=== PATIENT | male | born 1955 | race Two or more races ===

== ENCOUNTER 2025-08-21 10:22 | Inpatient (IN) | payer MEDICAID, OTHER ==
[~2025-08-21] VITALS: Ht 167.6 cm; Wt 75.5 kg
[2025-08-21 10:48] LABS: PLATELET COUNT (AUTO) 75 K/uL (150-450); RED BLOOD CELL COUNT(AUTO) 3.14 MIL/uL (4.5-6.0); RED CELL DISTRIBUTION WIDTH 20.9 % (11.5-15.0); WHITE BLOOD COUNT (AUTO) 2.8 K/uL (4.3-11.0)
[2025-08-21 10:53] LABS: ASPARTATE AMINOTRANSFERASE 26.0 U/L (15-37); CALCIUM, SERUM 7.8 mg/dL (8.5-10.1); CREATININE 1.4 mg/dL (0.6-1.3); SODIUM SERUM 140.0 mmol/L (136-145); TOTAL PROTEIN, SERUM 7.6 g/dL (6.4-8.2); UREA NITROGEN, BLOOD 46.0 mg/dL (7-18)
[2025-08-21] MEDS ORDERED: POTASSIUM CHLORIDE 20 MEQ TAB.PRT.SR PO ONE (11:15)
[2025-08-21] MEDS ORDERED: POTASSIUM CL. PREMIX PERIPHER. 50 ML ONE ×4 (11:15→14:36)
[2025-08-21] MEDS ORDERED: DOLU1TAB2 PO (11:17)
[2025-08-21] MEDS ORDERED: ATOR40TA PO (11:17)
[2025-08-21] MEDS ORDERED: ACET-2030 PO (11:17)
[2025-08-21] MEDS ORDERED: ACET-868 PO (11:17)
[2025-08-21] MEDS ORDERED: APIX5TAB PO (11:17)
[2025-08-21] MEDS ORDERED: POLY17PO4 PO (11:17)
[2025-08-21] MEDS ORDERED: FURO-144 PO (11:17)
[2025-08-21] MEDS ORDERED: METO100T14 PO (11:17)
[2025-08-21] MEDS ORDERED: ASCO-352 PO (11:17)
[2025-08-21] MEDS ORDERED: CRAN250C PO (11:17)
[2025-08-21] MEDS ORDERED: NA P133E RC (11:17)
[2025-08-21] MEDS ORDERED: SENN-18 PO (11:17)
[2025-08-21] MEDS ORDERED: LEVE500T20 PO (11:17)
[2025-08-21] MEDS ORDERED: SPIR25TA6 PO (11:17)
[2025-08-21] MEDS ORDERED: MULT-213 PO (11:17)
[2025-08-21] MEDS ORDERED: PANT20TA2 PO (11:17)
[2025-08-21] MEDS ORDERED: MAGN400O6 PO (11:17)
[2025-08-21] MEDS ORDERED: GABA800T11 PO (11:17)
[2025-08-21] MEDS ORDERED: BISA10SU11 RC (11:17)
[2025-08-21] MEDS ORDERED: BACL10TA PO (11:17)
[2025-08-21 11:29] LABS: LYMPHOCYTES % (MANUAL) 11 % (16-48); NEUTROPHILS % (MANUAL) 89 (42-76)
[2025-08-21 11:30] LABS: PLATELET ESTIMATE DECREASED
[2025-08-21] MEDS: POTASSIUM CL. PREMIX PERIPHER. 50 ML IV SCH (11:32)
[2025-08-21] MEDS: POTASSIUM CHLORIDE 20 MEQ TAB.PRT.SR PO ONE (11:32)
[2025-08-21 11:38] LABS: APPEARANCE,URINE TURBID (CLEAR)
[2025-08-21 11:44] LABS: SQUAMOUS EPITHELIAL CELL,UR None Seen /HPF (None Seen)
[2025-08-21] MEDS: CEFTRIAXONE 1GM BAG (ER ONLY) 1 GM/50 ML PIGGYBACK IV ONE (12:05)
[2025-08-21 15:00] VITALS: BP 111/57; TEMP 97.5; O2SAT 100
[2025-08-21] MEDS ORDERED: ONDANSETRON HCL/PF 4 MG/2 ML VIAL IVP PRN (15:00)
[2025-08-21] MEDS ORDERED: Z GUARD REMEDY 4 OZ OINT TP PRN (15:00)
[2025-08-21] MEDS ORDERED: ACETAMINOPHEN 325 MG TABLET PO PRN ×2 (15:00)
[2025-08-21] MEDS ORDERED: MAGNESIUM HYDROXIDE 30 ML UDC PO PRN (15:00)
[2025-08-21] MEDS ORDERED: MAG HYDROX/AL HYDROX/SIMETH 30 ML UDC PO PRN (15:00)
[2025-08-21 17:00] VITALS: BP 111/57; TEMP 97.5; O2SAT 100
[2025-08-21] MEDS: IV D5/0.45 NACL 1,000 ML IV PRN (17:10)
[2025-08-21] MEDS: METOPROLOL TARTRATE 50 MG TABLET PO SCH (17:22)
[2025-08-21] MEDS: APIXABAN 5 MG TABLET PO SCH (17:23)
[2025-08-21] MEDS: DEXTROSE 50%-WATER 50 ML DISP.SYRIN IV PRN (17:42)
[2025-08-21] MEDS: BLOOD SUGAR DIAGNOSTIC 1 EACH STRIP IN SCH (17:43)
[2025-08-21 21:00] VITALS: BP 96/52; TEMP 97.4; O2SAT 99
[2025-08-21] MEDS: GABAPENTIN 400 MG CAPSULE PO SCH (21:23)
[2025-08-21] MEDS: LEVETIRACETAM (250 MG) 250 MG TABLET PO SCH (21:23)
[2025-08-21] MEDS: SENNOSIDES 8.6 MG TABLET PO SCH (22:19)
[2025-08-22 01:00] VITALS: BP 99/55; TEMP 97.7; O2SAT 98
[2025-08-22 04:00] VITALS: BP 156/89; TEMP 97.8; O2SAT 100
[2025-08-22 06:29] LABS: PLATELET COUNT (AUTO) 80 K/uL (150-450); RED BLOOD CELL COUNT(AUTO) 3.47 MIL/uL (4.5-6.0); RED CELL DISTRIBUTION WIDTH 22.4 % (11.5-15.0); WHITE BLOOD COUNT (AUTO) 2.7 K/uL (4.3-11.0)
[2025-08-22] MEDS: INSULIN REGULAR, HUMAN 100 UNIT/ML 3 ML VIAL SQ PRN (06:57)
[2025-08-22 07:05] LABS: CALCIUM, SERUM 8.5 mg/dL (8.5-10.1); PHOSPHORUS 4.3 mg/dL (2.5-4.9); SODIUM SERUM 144.0 mmol/L (136-145); UREA NITROGEN, BLOOD 40.0 mg/dL (7-18)
[2025-08-22 07:18] LABS: CREATININE 1.7 mg/dL (0.6-1.3)
[2025-08-22 08:00] VITALS: BP 106/55; TEMP 97.5; O2SAT 100
[2025-08-22] MEDS: SPIRONOLACTONE 25 MG TABLET PO SCH (09:00)
[2025-08-22] MEDS: POTASSIUM CHLORIDE 20 MEQ TAB.PRT.SR PO SCH (09:34)
[2025-08-22] MEDS: THERAHONEY GEL 1.5 OZ TUBE TP SCH (11:48)
[2025-08-22 12:00] VITALS: BP 97/48; TEMP 97.9; O2SAT 100
[2025-08-22 13:17] LABS: EOSINOPHILS % (MANUAL) 3 % (0-4); LYMPHOCYTES % (MANUAL) 12 % (16-48); MONOCYTES % (MANUAL) 1 % (0-11.0); NEUTROPHILS % (MANUAL) 84 (42-76); PLATELET ESTIMATE DECREASED
[2025-08-22 16:00] VITALS: BP 110/55; TEMP 97.3; O2SAT 100
[2025-08-22 20:00] VITALS: BP 103/39; TEMP 97.5; O2SAT 99
[2025-08-23] VITALS: BP 99/39; TEMP 98.4; O2SAT 97
[2025-08-23 04:00] VITALS: BP 109/53; TEMP 97.5; O2SAT 98
[2025-08-23 08:00] VITALS: BP 107/42; TEMP 97.7; O2SAT 100
[2025-08-23 10:53] LABS: PLATELET COUNT (AUTO) 71 K/uL (150-450); RED BLOOD CELL COUNT(AUTO) 3.24 MIL/uL (4.5-6.0); RED CELL DISTRIBUTION WIDTH 22.0 % (11.5-15.0); WHITE BLOOD COUNT (AUTO) 2.5 K/uL (4.3-11.0)
[2025-08-23 11:18] LABS: ASPARTATE AMINOTRANSFERASE 22.0 U/L (15-37); CALCIUM, SERUM 7.8 mg/dL (8.5-10.1); CREATINE KINASE, TOTAL 148.0 U/L (39-308); CREATININE 1.6 mg/dL (0.6-1.3); PHOSPHORUS 3.8 mg/dL (2.5-4.9); SODIUM SERUM 140.0 mmol/L (136-145); TOTAL PROTEIN, SERUM 7.3 g/dL (6.4-8.2); UREA NITROGEN, BLOOD 39.0 mg/dL (7-18)
[2025-08-23 12:00] VITALS: BP 100/62; TEMP 97.2; O2SAT 99
[2025-08-23 13:02] LABS: EOSINOPHILS % (MANUAL) 7 % (0-4); LYMPHOCYTES % (MANUAL) 13 % (16-48); NEUTROPHILS % (MANUAL) 80 (42-76); PLATELET ESTIMATE DECREASED
[2025-08-23 16:01] VITALS: BP 102/59; TEMP 97.5; O2SAT 100
[2025-08-23] MEDS: NA PHOS,M-B/NA PHOS,DI-BA 1 EA ENEMA RC PRN (18:25)
[2025-08-23 20:00] VITALS: BP 108/80; TEMP 97.6; O2SAT 100
[2025-08-24] VITALS: BP 108/51; TEMP 96.8; O2SAT 100
[2025-08-24 04:00] VITALS: BP 97/51; TEMP 97.6; O2SAT 100
[2025-08-24 08:00] VITALS: BP 99/69; TEMP 97.9; O2SAT 99
[2025-08-24] MEDS: POTASSIUM CHLORIDE 20 MEQ TAB.PRT.SR PO ONE (10:28)
[2025-08-24 12:00] VITALS: BP 105/58; TEMP 97.8; O2SAT 96
[2025-08-24 12:57] VITALS: BP 99/52
[2025-08-26 01:11] LABS: PTH, INTACT 46 pg/mL (15-65)
== END 2025-08-24 15:54 | DRG 424 ==
LOC: ER 10:35 → TELE1 14:22
PROVIDERS: ADMIT Internal Medicine; ATTEND Internal Medicine
DX: E16.2 Hypoglycemia, unspecified (principal); N17.0 Acute kidney failure with tubular necrosis; G92.8 Other toxic encephalopathy; L89.154 Pressure ulcer of sacral region, stage 4; L89.224 Pressure ulcer of left hip, stage 4; L89.214 Pressure ulcer of right hip, stage 4; I13.0 Hypertensive heart and chronic kidney disease with heart failure and stage 1 through stage 4 chronic kidney disease, or unspecified chronic kidney disease; J90 Pleural effusion, not elsewhere classified; E86.0 Dehydration; I48.91 Unspecified atrial fibrillation; D64.9 Anemia, unspecified; E78.5 Hyperlipidemia, unspecified; E86.9 Volume depletion, unspecified; E87.6 Hypokalemia; G40.909 Epilepsy, unspecified, not intractable, without status epilepticus; I50.9 Heart failure, unspecified; K64.9 Unspecified hemorrhoids; N18.9 Chronic kidney disease, unspecified; N39.0 Urinary tract infection, site not specified; Z79.01 Long term (current) use of anticoagulants; Z79.899 Other long term (current) drug therapy; Z87.19 Personal history of other diseases of the digestive system; G62.9 Polyneuropathy, unspecified; M89.8X9 Other specified disorders of bone, unspecified site; J98.11 Atelectasis
CPT/HCPCS: 36415; 71045-TC; 74018; 76770-TC; 80048-TC; 80053-TC; 80076-TC; 81001; 82550-TC; 82962-TC; 83690-TC; 83735-TC; 83970; 84100-TC; 84155; 84165; 84484-TC; 85027-TC; 87081-TC; 92526; 92611; 93971-TC; A4217; A4223; A6254; A6403; G0378; J0696; J1815; J3480; J3490; J7042